=== PATIENT | female | born 1975 | race Caucasian/White ===

== ENCOUNTER 2021-07-15 21:13 | Emergency (ER) | payer BC ==
[2021-07-15] MEDS ORDERED: Metoclopramide 10 MG/2 ML SDV IV ONE (21:27)
[2021-07-15] MEDS ORDERED: Sodium Chloride 0.9% 1,000 ML IV ONE (21:27)
[2021-07-15] MEDS ORDERED: Codeine/guaiFENesin 10-100 MG/5 ML Syrup 5 ML Cup PO ONE (21:27)
[2021-07-15] MEDS ORDERED: Ketorolac 30 MG/ML SDV IVPUSH ONE (21:27)
[2021-07-15] MEDS ORDERED: Ondansetron 4 MG/2 ML SDV IVPUSH ONE (21:27)
[2021-07-15] MEDS ORDERED: diphenhydrAMINE 50 MG/ML SDV IVPUSH ONE (21:27)
--- NOTE | 2021-07-15 21:36 | EDM.PDOC ---
ED HPI GENERAL MEDICAL PROBLEM - General Chief Complaint: Headache Stated Complaint: HEADACHE Time Seen by Provider: 07/15/21 21:20 Source of Information: Reports: Patient History Limitations: Reports: No Limitations - History of Present Illness INITIAL COMMENTS - FREE TEXT/NARRATIVE: HISTORY AND PHYSICAL: History of present illness: Patient is a 45-year-old female who presents emergency room today with concern of known COVID-19 diagnosis for the past 14 days, who presents emergency room today with concern of a headache. Patient states that she has had a spasmatic cough since she was diagnosed with COVID-19 and was prescribed albuterol today. Patient states that she feels as if the albuterol has triggered the headache to worsen. She states that she has had a headache with the COVID-19 diagnosis but after starting the albuterol today, noticed that is worsened and is worse with coughing. Patient states she last took 200 mg of ibuprofen at 6 and 650 mg of Tylenol at 6 just before dinner with mild relief of her symptoms. Patient states she is also had a cough, generalized body aches, and intermittent fever since diagnosis of COVID-19. Patient denies chest pain, shortness of breath.. Denies neck stiff ness, change in vision, syncope, or near syncope. Denies nausea, vomiting, abdominal pain, diarrhea, constipation, or dysuria. Has not noted any blood in urine or stool. Patient has been eating and drinking appropriately. Review of systems: As per history of present illness and below otherwise all systems reviewed and negative. Past medical history: As per history of present illness and as reviewed below otherwise noncontributory. Surgical history: As per history of present illness and as reviewed below otherwise noncontributory. Social history: See social history for further information Family history: As per history of present illness and as reviewed below otherwise noncontributory. Physical exam: General: Patient is alert, oriented, and in no acute distress. Patient laying comfortably on exam table. Mildly tachycardic 105 on exam, otherwise vitally stable and reviewed by me. HEENT: Atraumatic, normocephalic, pupils equal and reactive bilaterally, negative for conjunctival pallor or scleral icterus, mucous membranes moist, throat clear, neck supple, nontender, trachea midline. No drooling or trismus noted. No meningeal signs. No hot potato voice noted. Lungs: Clear to auscultation, breath sounds equal bilaterally, chest nontender. Patient speaking clearly without breathlessness, no wheezing or stridor, no accessory muscle use or respiratory distress. Heart: S1S2, regular rate and rhythm without overt murmur Abdomen: Soft, nondistended, nontender. Negative for masses or hepatosplenomegaly. Negative for costovertebral tenderness. Pelvis: Stable nontender. Genitourinary: Deferred. Rectal: Deferred. Skin: Intact, warm, dry. No lesions or rashes noted. Extremities: Atraumatic, negative for cords or calf pain. Neurovascular unremarkable. Neuro: Awake, alert, oriented. Cranial nerves II through XII unremarkable. Cerebellum unremarkable. Motor and sensory unremarkable throughout. Exam nonfocal. Notes: Patient is a 45-year-old female, with known COVID-19 diagnosis, who presents emergency room today with concern of headache. Patient states secondary to her cough, and now starting albuterol, she feels as if this is worsened her headache today. Upon arrival to the ED, patient is mildly tachycardic 105 on exam, otherwise vitally stable and well-appearing on exam. Will provide patient with therapeutics for her headache and cough today, and reassess patient. Upon reevaluation of patient, she has improvement of her symptoms today in the ED. HR has improved to 90bmp and otherwise vitally stable. strict return precautions thoroughly discussed with patient. Discussed importance for follow- up with a primary care provider following COVID-19 quarantine team restrictions. Voices understanding and is agreeable to plan of care. Denies any further questions or concerns at this time. Diagnostics: None Therapeutics: NS, Toradol, Zofran, Reglan, Benadryl, Robitussin AC, Nebulized lidocaine Prescription: None Impression: COVID-19 viral infection Headache, improved Plan: 1. Encourage small but frequent sips of fluid to prevent dehydration. Continue to quarantine per your COVID-19 quarantine guidelines restrictions as discussed. 2. Continue to alternate ibuprofen and Tylenol as directed for pain and discomfort. 3. Follow-up with a primary care provider as discussed. Return to the ED as needed and as discussed. 4. Your vital signs and oxygen saturation are well enough that you were able to monitor your symptoms at home. Continue to monitor for trouble breathing, new confusion or inability to arouse, bluish lips or face or any of the other symptoms we discussed -if this occurs please return to the emergency room.Continue to monitor your health at home for worsening symptoms so that you can be taken care of and treated quickly if needed. Definitive disposition and diagnosis as appropriate pending reevaluation and review of above. Bilateral Head Pain Score (Numeric/FACES): 10 - Related Data Allergies Allergy/AdvReac Type Severity Reaction Status Date / Time Penicillins Allergy Rash Verified 08/11/16 17:40 Home Meds: Home Meds buPROPion [Wellbutrin] 150 mg PO DAILY 08/11/16 [History] cloNIDine [Catapres] 0.1 mg PO DAILY PRN #20 tablet 08/11/16 [Rx] Albuterol Sulfate 07/15/21 [History] Past Medical History Cardiovascular History: Reports: Hypertension Respiratory History: Reports: Sleep Apnea Other Respiratory History: uses CPAP Psychiatric History: Reports: Anxiety, Depression Social & Family History - Family History Family Medical History: No Pertinent Family History ED ROS GENERAL - Review of Systems Review Of Systems: Comprehensive ROS is negative, except as noted in HPI. ED EXAM, GENERAL - Physical Exam Exam: See Below (see dictation) Course - Vital Signs Last Recorded V/S: Last Vital Signs Temp 98.6 F 07/15/21 21:25 Pulse 96 07/15/21 22:05 Resp 18 07/15/21 21:25 BP 141/71 H 07/15/21 22:05 Pulse Ox 99 07/15/21 22:05 - Orders/Labs/Meds Orders: Active Orders 24 hr Category Date Time Status Sodium Chloride 0.9% [Normal Saline] 1,000 ml Med 07/15/21 21:27 Active IV STAT Medication Orders Sodium Chloride (Normal Saline) 1,000 mls @ 999 mls/hr IV STAT ONE Stop: 07/15/21 22:27 Last Admin: 07/15/21 21:46 Dose: 999 mls/hr Documented by: ANTHONY Meds: Medications Generic Name Dose Route Start Last Admin Trade Name Freq PRN Reason Stop Dose Admin Sodium Chloride 1,000 mls @ 999 mls/hr 07/15/21 21:27 10 21:46 Normal Saline IV 07/15/21 22:27 999 mls/hr STAT ONE Administration Discontinued Medications Generic Name Dose Route Start Last Admin Trade Name Freq PRN Reason Stop Dose Admin Diphenhydramine HCl 50 mg 07/15/21 21:27 07/15/21 21:48 Diphenhydramine 50 Mg/Ml Sdv IVPUSH 07/15/21 21:28 50 mg ONETIME ONE Administration Guaifenesin/Codeine Phosphate 5 ml 07/15/21 21:27 07/15/21 21:46 Codeine/Guaifenesin 10-100 Mg/5 Ml Syrup 5 Ml Cup PO 07/15/21 21:28 5 ml ONETIME ONE Administration Ketorolac Tromethamine 30 mg 07/15/21 21:27 07/15/21 21:47 Ketorolac 30 Mg/Ml Sdv IVPUSH 07/15/21 21:28 30 mg ONETIME ONE Administration Lidocaine HCl 5 ml 07/15/21 21:27 07/15/21 21:49 Lidocaine 1% 5 Ml Sdv .XX 07/15/21 21:28 5 ml ONETIME ONE Administration Metoclopramide HCl 10 mg 07/15/21 21:27 07/15/21 21:47 Metoclopramide 10 Mg/2 Ml Sdv IV 07/15/21 21:28 10 mg ONETIME ONE Administration Ondansetron HCl 4 mg 07/15/21 21:27 07/15/21 21:46 Ondansetron 4 Mg/2 Ml Sdv IVPUSH 07/15/21 21:28 4 mg ONETIME ONE Administration Departure - Departure Time of Disposition: 22:28 Disposition: Home, Self-Care 01 Clinical Impression: COVID-19 virus infection Headache Qualifiers: Headache type: unspecified Headache chronicity pattern: acute headache Intractability: not intractable Qualified Code(s): R51.9 - Headache, unspecified - Discharge Information Referrals: Dex Hardy MD [Primary Care Provider] - Forms: ED Department Discharge Additional Instructions: The following information is given to patients seen in the emergency department who are being discharged to home. This information is to outline your options for follow-up care. We provide all patients seen in our emergency department with a follow-up referral. The need for follow-up, as well as the timing and circumstances, are variable depending upon the specifics of your emergency department visit. If you don't have a primary care physician on staff, we will provide you with a referral. We always advise you to contact your personal physician following an emergency department visit to inform them of the circumstance of the visit and for follow-up with them and/or the need for any referrals to a consulting specialist. The emergency department will also refer you to a specialist when appropriate. This referral assures that you have the opportunity for follow-up care with a specialist. All of these measure are taken in an effort to provide you with optimal care, which includes your follow-up. Under all circumstances we always encourage you to contact your private physician who remains a resource for coordinating your care. When calling for follow-up care, please make the office aware that this follow-up is from your recent emergency room visit. If for any reason you are refused follow-up, please contact the [facility] Emergency Department at and asked to speak to the emergency department charge nurse. [facility] [address] [place] [id number] [facility] [address] [place] [id number] 1. Encourage small but frequent sips of fluid to prevent dehydration. Continue to quarantine per your COVID-19 quarantine guidelines restrictions as discussed. 2. Continue to alternate ibuprofen and Tylenol as directed for pain and discomfort. 3. Follow-up with a primary care provider as discussed. Return to the ED as needed and as discussed. 4. . Your vital signs and oxygen saturation are well enough that you were able to monitor your symptoms at home. Continue to monitor for trouble breathing, new confusion or inability to arouse, bluish lips or face or any of the other symptoms we discussed -if this occurs please return to the emergency room.C ontinue to monitor your health at home for worsening symptoms so that you can be taken care of and treated quickly if needed. Sepsis Event Note (ED) - Focused Exam Vital Signs: Vital Signs Temp Pulse Resp BP Pulse Ox 07/15/21 22:05 96 141/71 H 99 07/15/21 21:25 98.6 F 105 H 18 155/90 H 97 - My Orders Last 24 Hours: My Active Orders 07/15/21 21:27 Sodium Chloride 0.9% [Normal Saline] 1,000 ml IV STAT - Assessment/Plan Last 24 Hours: My Active Orders 07/15/21 21:27 Sodium Chloride 0.9% [Normal Saline] 1,000 ml IV STAT
[2021-07-15 22:53] VITALS: BP 113/57; PULSE 90
== END 2021-07-15 22:54 | disposition home or self-care (01) ==
LOC: MW.ED 21:13
DX: U07.1 COVID-19 (principal); I10 Essential (primary) hypertension; Z88.0 Allergy status to penicillin
CPT/HCPCS: 96374; 96375; 99283; A9270; J1200; J1885; J2405; J2765; J7030

== ENCOUNTER 2022-07-20 12:01 | Emergency (ER) | payer BC ==
[2022-07-20 13:53] VITALS: BP 139/89; PULSE 78
== END 2022-07-20 13:50 | disposition home or self-care (01) ==
LOC: MW.ED 12:01
DX: L08.9 Local infection of the skin and subcutaneous tissue, unspecified (principal); A49.9 Bacterial infection, unspecified; I10 Essential (primary) hypertension; Z88.0 Allergy status to penicillin; Z79.899 Other long term (current) drug therapy
CPT/HCPCS: 87070; 87075; 87077; 87186; 87205; 99283